=== PATIENT | male | born 1945 | race Caucasian/White ===

== ENCOUNTER → 2017-01-09 | Outpatient (CLI) | payer MEDICARE, OTHER ==
[~2017-01-09] MED LIST: ANORO ELLIPTA1 EACH INH; APRESOLINE25 MG PO; BIPAP INH; CATAPRES0.2 MG PO; CELEXA40 MG PO; COREG6.25 MG PO; CRESTOR10 MG PO; DIOVAN320 MG PO; HUMIBID LA (MU600 MG PO; K-TAB ER20 MEQ PO; LASIX80 MG PO; LEVOTHROID (S100 MCG PO; MULTI VITAMIN1 EACH PO; NORVASC5 MG PO; NOVOLOG FL100 UNIT/1; PRADAXA150 MG PO; PROBIOTIC1 EAC4 PO; SLOW-MAG (64 MG1 TAB PO; TIKOSYN500 MCG PO; TOUJEO SOL300 UNIT/1 SUB-Q; VASCULERA630 MG PO; VICTOZA 3-0.6 MG/0.1 SUB-Q; VITAMIN D-32000 UNI1 PO; ZYLOPRIM300 MG PO
== END | disposition disaster alternative care site (69) ==
LOC: GRAD 12:30
DX: I73.9 Peripheral vascular disease, unspecified (principal); M79.662 Pain in left lower leg; Z95.828 Presence of other vascular implants and grafts; I70.0 Atherosclerosis of aorta; Z79.01 Long term (current) use of anticoagulants
CPT/HCPCS: Q9967

== ENCOUNTER → 2017-05-05 | Day surgery (SDC) | payer MEDICARE, OTHER ==
[~2017-05-05] VITALS: Ht 195.6 cm; Wt 140.3 kg
--- NOTE | ~2017-05-05 | OR ---
PATIENT'S NAME: NOE CHERY [facility] AGE: 71 Y [address] ROOM: [place] [id number] LOCATION: [facility] ADMIT DATE: 05/05/2017 OR/Procedure Report DISCHARGE DATE: FAMILY PHYSICIAN: Gissel Pizano PA-C ATTENDING PHYSICIAN: James Carey V SURGEON: James Carey MD SENIOR DIGITAL DESIGNER: Yun Carvalho, ENT Resident PGY5 DATE OF PROCEDURE: 05/05/2017 PREOPERATIVE DIAGNOSIS: Hoarseness and bilateral vocal cord mass. POSTOPERATIVE DIAGNOSIS: Hoarseness and bilateral vocal cord mass. PROCEDURE PERFORMED: Microdirect laryngoscopy with biopsy of the vocal cords. ANESTHESIA: General endotracheal anesthesia. SPECIMEN: Right vocal cord biopsy and left vocal cord biopsy. ESTIMATED BLOOD LOSS: Less than 5 mL. INDICATIONS: Mr. Chery is a 71-year-old male who has developed hoarseness over the last year which has been progressive in nature. He had a flexible fiberoptic examination in clinic and that showed a bilateral vocal cord mass. He is a former smoker, but he has quit several years ago. DESCRIPTION OF PROCEDURE: The patient was seen in the preoperative holding area. Informed written consent was obtained from the patient for a microdirect laryngoscopy with biopsy. After full knowledge of the risks, benefits, and alternatives, the patient wished to proceed. The patient was taken to the operating room, placed on the operating room table. General endotracheal anesthesia was induced without difficulty. A time-out was performed identifying the patient, as well as the procedure to be performed. The bed was then rotated 90 degrees, and the patient was placed in a sniffing position. A mouth guard was placed over the patient's upper teeth. We used a Dedo laryngoscope for this examination. We placed the scope into the right piriform sinus and so we withdrew. There were no masses seen in the right piriform or the right lateral pharyngeal wall or tonsil. The scope was then placed into the left piriform sinus, in a similar fashion withdrawn. No masses or ulcerations were seen in this area. The scope was around the base of tongue. No masses were seen in the base of the tongue, or in the vallecula. The scope was then placed into the larynx. It was a slightly difficult exposure, but we were able to see the anterior commissure. There was a mass coming off the left vocal cord, wrapping around the anterior commissure, and involving the right true vocal cord as well. Did not appear PATIENT'S NAME: NOE CHERY [facility] AGE: 71 Y [address] ROOM: [place], [place] [address] LOCATION: [facility] ADMIT DATE: 05/05/2017 OR/Procedure Report DISCHARGE DATE: FAMILY PHYSICIAN: Gissel Pizano PA-C ATTENDING PHYSICIAN: James Carey V to be going into the subglottis or involving the false vocal cords. The mass was grasped on the left vocal cord with a cup forcep, and microlaryngeal scissors were used to excise the biopsy specimen. This was done under the operating microscope. In a similar fashion, the mass on the right vocal cord was grasped with the up-biting forceps and microlaryngeal scissors were used to excise a portion of the mass. Hemostasis was then achieved with topical epinephrine. All instruments were removed from the patient. This marked the conclusion of the procedure. All sponge and needle counts were correct x2. The patient was passed back to Anesthesia, where he was extubated without any difficulty and transported to the PACU in stable condition. YUN CARVALHO, ENT RESIDENT PGY5 FOR MD DIANIA TURPIN/pinol /[id number] d: 05/05/17 1500 t: 05/12/17 0957, OPERATIVE SUMMARY
== END ==
LOC: GPOC 04-28 14:00 → GSDC 05:41 → GPOC 07:00
PROC: 0CBV8ZX Excision of Left Vocal Cord, Via Natural or Artificial Opening Endoscopic, Diagnostic (ICD-10-PCS; principal; 2017-05-05)
PROC: 0CBT8ZX Excision of Right Vocal Cord, Via Natural or Artificial Opening Endoscopic, Diagnostic (ICD-10-PCS; 2017-05-05)
DX: C32.0 Malignant neoplasm of glottis (principal); R49.0 Dysphonia; E11.9 Type 2 diabetes mellitus without complications; E07.9 Disorder of thyroid, unspecified; I10 Essential (primary) hypertension; E78.00 Pure hypercholesterolemia, unspecified; I48.91 Unspecified atrial fibrillation; J44.9 Chronic obstructive pulmonary disease, unspecified; Z98.41 Cataract extraction status, right eye; Z98.42 Cataract extraction status, left eye; Z98.890 Other specified postprocedural states; Z88.0 Allergy status to penicillin; Z79.4 Long term (current) use of insulin
CPT/HCPCS: J0171; J1100; J2001; J2405; J7030